=== PATIENT | female | born 1990 | race Two or more races ===

== ENCOUNTER 2024-06-05 14:30 | Observation (INO) | payer OTHER ==
--- NOTE | 2024-06-05 15:22 | DVH ---
BIOPHYSICAL PROFILE HISTORY: GDMA2 Comparison Study: None available at time of dictation. TECHNIQUE: Multiple real-time grayscale sonographic images through the gravid uterus of the fetus wi th duplex Doppler color flow and M-mode spectral analysis FINDINGS: BIOPHYSICAL PROFILE: breathing score: 2 movement score: 2 tone score: 2 Quantitative ROBERT score: 2 (ROBERT: 20.9 Cm.) Total score: 8 Single live fetus in cephalic presentation. heart rate 130 beats per minute. Grade 1 placenta without previa or abruption Biophysical profile score 8 corresponding to an MARK of 06/30/24 IMPRESSION: 1. Biophysical profile score: 8 2. Estimated due date 06/30/2024. DEXA estimated gestational age corresponding with 36 weeks and 3 d ays. Posterior placenta positioning. 3. Normal cardiac heart rate. HS:Y
--- NOTE | 2024-06-06 08:11 | DVHDS2 ---
Physician Discharge Progress N Final Diagnosis: gdm 36wks Operations or Procedures: Operations or Procedures nst,sono Condition on Discharge: Good Disposition: Home Discharge Instructions: Diet: Consistent carbohydrate Activity: No Restrictions, As Tolerated Medications: na Follow Up Care: Specialist: 3d Discharge Statement: "Patient was advised to return to the ER or call 911 if any headaches, dizziness, shortness of breath, chest pain, abdominal pain, bleeding, fevers, or worsening of medical condition. Patient was counseled about treatment plan, medications, possible side effects, patientverbalized understanding. All questions were answered to the best of my ability. This discharge took greater then 30 minutes in planning, reviewing documentati on, counseling the patient, and discussing with other team members." Visit Coding OBGYN Date of Service: Jun 05, 2024 Billing Provider: KAREEM SWAN DO FIELD ACCOUNT MANAGER Common Visit Codes: [id number] OBS CARE (HIGH) FIELD ACCOUNT MANAGER Procedure Codes: 03236-01- NON-STRESS TEST KAREEM SWAN DO Jun 06, 2024 08:11
== END 2024-06-05 15:57 | disposition home or self-care (01) ==
LOC: LDRP 14:30 → UNDOADMOB 14:30 → LDRP 14:35 → UNDODISOB 15:57
PROVIDERS: ADMIT Obstetrics & Gynecology; ATTEND Obstetrics & Gynecology
DX: O24.419 Gestational diabetes mellitus in pregnancy, unspecified control (principal); Z3A.36 36 weeks gestation of pregnancy; Z79.899 Other long term (current) drug therapy
CPT/HCPCS: 76818; 81002; 82948; 82962; 94760; G0378; 76819

== ENCOUNTER 2024-06-12 15:53 | Observation (INO) | payer OTHER ==
--- NOTE | 2024-06-12 16:40 | DVH ---
BIOPHYSICAL PROFILE HISTORY: gdma1 TECHNIQUE: Multiple transabdominal real-time grayscale sonographic images through the gravid uterus of the fetus with duplex Doppler color flow and M-mode spectral analysis FINDINGS: BIOPHYSICAL PROFILE: breathing score: 2 movement score: 2 tone score: 2 Quantitative ROBERT score: 2 (ROBERT: 20.2 Cm.) Total score: 8/8 The cervix not measured Single live fetus in cephalic presentation. heart rate 135 beats per minute. Earlier Grade 2 placenta without previa or abruption Single live fetus at 37 weeks 3 days Biophysical profile score 8/8 corresponding to an MARK of 06/30/2024 Estimated weight not calculated g IMPRESSION: 1. Biophysical profile score: 8/8.
--- NOTE | 2024-06-14 08:10 | DVHDS2 ---
Physician Discharge Progress N Final Diagnosis: gdm 37wks Operations or Procedures: Operations or Procedures nst,sono Condition on Discharge: Good Disposition: Home Discharge Instructions: Diet: Regular, Consistent carbohydrate Activity: No Restrictions, As Tolerated Medications: na Follow Up Care: Specialist: 4d Discharge Statement: "Patient was advised to return to the ER or call 911 if any headaches, dizziness, shortness of breath, chest pain, abdominal pain, bleeding, fevers, or worsening of medical condition. Patient was counseled about treatment plan, medications, possible side effects, patientverbalized understanding. All questions were answered to the best of my ability. This discharge took greater then 30 minutes in planning, reviewing do cumentation, counseling the patient, and discussing with other team members." Visit Coding OBGYN Date of Service: Jun 12, 2024 Billing Provider: KAREEM SWAN DO FAMILY SERVICES SPECIALIST Common Visit Codes: [id number] INP/OBS CARE (HIGH) FAMILY SERVICES SPECIALIST Procedure Codes: 56783-57- NON-STRESS TEST KAREEM SWAN DO Jun 14, 2024 08:10
== END 2024-06-12 17:08 | disposition home or self-care (01) ==
LOC: LDRP 15:53 → UNDOADMOB 15:53 → LDRP 16:03 → UNDODISOB 17:08
PROVIDERS: ADMIT Obstetrics & Gynecology; ATTEND Obstetrics & Gynecology
DX: O24.419 Gestational diabetes mellitus in pregnancy, unspecified control (principal); Z3A.37 37 weeks gestation of pregnancy; Z79.899 Other long term (current) drug therapy; Z98.890 Other specified postprocedural states
CPT/HCPCS: 76818; 81002; 82948; 82962; 94760; G0378; 76819

== ENCOUNTER 2024-06-19 16:00 | Observation (INO) | payer OTHER ==
[2024-06-19] MEDS ORDERED: PREN-96 PO (16:33)
--- NOTE | 2024-06-19 16:49 | DVH ---
Procedure: US BIOPHYSICAL PROFILE 06/19/2024 04:16 PM Indication: GDMA1 Comparison: US BIOPHYSICAL PROFILE on DOS: 06/12/24, US BIOPHYSICAL PROFILE on DOS: 06/05/24 Technique: Sonogram of gravid uterus utilizing grayscale and color techniques. FINDINGS: Single living intrauterine gestation. Presentation: Cephalic Placenta: Posterior heart rate: 134 bpm ROBERT: 17 cm, DVP: 5.7 cm Maternal cervix: Not visualized Biophysical Profile: breathing score: 2 movement score: 2 tone: 2 Quantitative ROBERT score: 2 Total score: 8/8 IMPRESSION: 1. Single living as above. 2. Biophysical profile score: 8/8.
--- NOTE | 2024-06-19 17:04 | DVHDS2 ---
Physician Discharge Progress N Final Diagnosis: ama,gdm 38wks Operations or Procedures: Operations or Procedures nst,sono Condition on Discharge: Good Disposition: Home Discharge Instructions: Diet: Consistent carbohydrate Activity: Light activity Medications: na Follow Up Care: Specialist: 4d Discharge Statement: "Patient was advised to return to the ER or call 911 if any headaches, dizziness, shortness of breath, chest pain, abdominal pain, bleeding, fevers, or worsening of medical condition. Patient was counseled about treatment plan, medications, possible side effects, patientverbalized understanding. All questions were answered to the best of my ability. This discharge took greater then 30 minutes in planning, reviewing documentation, counseling the patient, and discussing with other team members." Visit Coding OBGYN Date of Service: Jun 19, 2024 Billing Provider: KAREEM SWAN DO INSTRUCTIONAL SUPPORT TECHNICIAN Common Visit Codes: [id number] INP/OBS CARE (HIGH) INSTRUCTIONAL SUPPORT TECHNICIAN Procedure Codes: 42742-32- NON-STRESS TEST KAREEM SWAN DO Jun 19, 2024 17:04
== END 2024-06-19 17:00 | disposition home or self-care (01) ==
LOC: LDRP 16:00
PROVIDERS: ADMIT Obstetrics & Gynecology; ATTEND Obstetrics & Gynecology
DX: O24.419 Gestational diabetes mellitus in pregnancy, unspecified control (principal); O09.523 Supervision of elderly multigravida, third trimester; Z98.890 Other specified postprocedural states; Z79.899 Other long term (current) drug therapy; Z3A.38 38 weeks gestation of pregnancy
CPT/HCPCS: 76818; 81002; 82948; 82962; G0378; 76819